=== PATIENT | female | born 1980 | race Caucasian/White ===

== ENCOUNTER 2017-06-30 20:40 | Emergency (ER) | payer MEDICAID | END 2017-06-30 21:57 | disposition home or self-care (01) | LOC: D.ER 20:40 | DX: J20.9 Acute bronchitis, unspecified (principal); J44.9 Chronic obstructive pulmonary disease, unspecified; F43.10 Post-traumatic stress disorder, unspecified; Z86.59 Personal history of other mental and behavioral disorders; F17.200 Nicotine dependence, unspecified, uncomplicated; R00.0 Tachycardia, unspecified ==

== ENCOUNTER 2017-07-03 17:43 | Inpatient (IN) | payer MEDICAID ==
[~2017-07-03] VITALS: Ht 167.6 cm; Wt 73.6 kg
[~2017-07-03 17:43] MED LIST: DESERYL100 MG PO; KLONOPIN1 MG PO; NORCO 7.5/325 T1 TA1 PO; SEROQUEL XR300 MG PO; TOFRANIL-PM100 MG PO
[2017-07-04] MEDS ORDERED: MIRALAX17 GM PO (00:02)
[2017-07-04] MEDS ORDERED: CIPROFLOXACIN750 MG PO (00:10)
[2017-07-04] MEDS ORDERED: LYRICA75 MG PO (00:11)
[2017-07-04] MEDS ORDERED: CARAFATE1 G PO (00:13)
[2017-07-04 05:27] VITALS: Ht 167.6 cm; Wt 73.6 kg
[2017-07-04 14:54] VITALS: BP 102/37
== END 2017-07-04 16:26 | disposition left against medical advice (07) | DRG 195 ==
LOC: D.ER 17:43 → D.M2 20:34
PROVIDERS: ADMIT Family Medicine
DX: J18.9 Pneumonia, unspecified organism (principal); B19.20 Unspecified viral hepatitis C without hepatic coma; F41.9 Anxiety disorder, unspecified; F31.9 Bipolar disorder, unspecified; R56.9 Unspecified convulsions; Z72.0 Tobacco use

== ENCOUNTER → 2017-07-30 15:09 | Outpatient (CLI) | payer MEDICAID ==
[2017-07-04 05:27] VITALS: BMI 26.2
[~2017-07-30 15:09] MED LIST changes: +CARAFATE1 G PO; +CIPROFLOXACIN750 MG PO; +LYRICA75 MG PO; +MIRALAX17 GM PO
== END | disposition home or self-care (01) ==
LOC: D.MAMMO 09:00
DX: Z12.31 Encounter for screening mammogram for malignant neoplasm of breast (principal)